=== PATIENT | female | born 1980 ===

== ENCOUNTER 2023-11-22 10:47 | Outpatient (AMB) | payer OTHER, SELFPAY ==
[2023-11-22 10:53] VITALS: BP 114/70; PULSE 58; TEMP 36.2; O2SAT 99; BMI 32.0
--- NOTE | 2023-11-22 10:53 | AM.OFFWIN_ITS ---
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 She states that on Thursday 11/16 she had a cortisone shot in her foot for her plantar fasciitis. Later that day, she started to feel palpitations. These were constant, and over the last 5 days, have decreased in frequency, however will still last a couple of hours at a time. She denies any associated symptoms such as chest pain, dizziness, shortness of breath. Denies any recent illness. Denies cardiac history or medical problems. [facility] Social History Patient Tobacco Use Status: Never used Tobacco Review of Systems Const All systems reviewed & are unremarkable except as noted in HPI and below Physical Exam Vital Signs: Last Vital Signs Temp 97.1 F 11/22/23 10:53 Pulse 58 11/22/23 10:53 BP 114/70 11/22/23 10:53 Pulse Ox 99 11/22/23 10:53 Oxygen Delivery Method Room Air 11/22/23 10:53 BMI result Body Mass Index 32.0 Const General: cooperative, healthy appearing, comfortable and no acute distress Nutritional Appearance: overweight Orientation/consciousness: patient oriented x3 HEENT Head: Yes normal to inspection Face and sinus: Yes normal facial exam Neck Neck: Yes no lymphadenopathy Chest Chest palpation & inspection: normal inspection of the chest Resp Effort & Inspection: normal respiratory effort Auscultation: clear to auscultation bilaterally Skin General skin exam: no rashes or lesions noted Neuro General: patient oriented x3 Cognition (Neuro): normal cognition Extrem General: Yes capillary refill normal and Yes no clubbing, cyanosis or edema Psych Appearance: grossly normal Mental Status: mental status grossly normal Speech and movement: Normal speech and movement present Assessment & Plan Assessment & Plan (1) Intermittent palpitations: Code(s): R00.2 - Palpitations Plan: EKG in the office shows sinus bradycardia, 56. Physical assessment is normal. She was not due to see Dr. Hope, PCP for several months, however we were able to accommodate an appointment for her tomorrow for a f/u to determine any fur ther workup for this. We discussed that if she develops any associated symptoms with these palpitations such as chest pain, dizziness, shortness of breath, she should go to the ED for evaluation. Otherwise she will f/u with PCP tomorrow. Patient verbalizes understanding and agrees to plan. Orders: Orders AMB EKG-In Office Today R00.2 - Palpitations Coding Level of Care Code Est Pt Level 4 (62116) Diagnoses Intermittent palpitations R00.2
== END 2023-11-22 12:14 | disposition home or self-care (01) ==
PROVIDERS: PCP Internal Medicine; Visit Provider Nurse Practitioner Family
DX: R00.2 Palpitations (principal)
CPT/HCPCS: 99214

== ENCOUNTER 2023-11-23 09:27 | Outpatient (AMB) | payer OTHER, SELFPAY ==
[2023-11-23 09:35] VITALS: BP 116/76; PULSE 68; O2SAT 96; BMI 31.7
--- NOTE | 2023-11-23 09:35 | A.OFFPC_ITS ---
Vital Signs 11/23/23 09:35 Height 4 ft 9 in Weight 146 lb 8 oz BMI 31.7 BP 116/76 Blood Pressure Location Lt brachial Position Sitting Pulse 68 Pulse Source Pulse Oximeter Pulse Oximetry (%) 96 Oxygen Delivery Method Room Air Intake Visit Reasons: [place] F/U 11/22/23 Intake Note: Pt is today for follow up from walking on 11/22/23. Pt states she still having heart palpitations. Pt also mentioned she had 2 steroid injections. Allergies No Known Allergies Allergy (Verified 11/23/23 10:18) Medication List - Last Reconciled 11/23/23 by HAIM Barber famotidine 20 mg PO BID Tobacco use date assessed: 11/23/23 Dental Screening Dental Screen Date: 11/23/23 Did you have a dental visit in the last 12 months?: Yes Did you have a dental problem in the last 6 months where you did not have access to dental care?: No Was dental information given to patient?: Patient has dentist HPI HPI Comments History of Present Illness Details Patient is a 43-year-old female in today for walk-in follow-up. Patient states that she got cortisone injections in bilateral feet for plantar fasciitis. Patient states since then she has been having intermittent chest palpitations. Patient was seen in our walk-in clinic 1 day prior had EKG which demonstrated sinus bradycardia. Patient reports 1 cup of coffee as caffeine consumption. Denies history of thyroid disorders. Denies cardiac history. Denies chest pain or shortness of breath. Denies syncope or presyncope. Denies general anxiety. Will obtain EKG in office today. Will draw labs including BMP, TSH, CBC. [facility] Medical History (Updated 11/23/23 @ 10:31 by HAIM Barber) GERD (gastroesophageal reflux disease) Family History (Updated 11/23/23 @ 10:20 by HAIM Barber) Mother Stroke Social History Housing: House Patient Tobacco Use Status: Never used Tobacco e-Cigarette/Vaping Use: Never Used service: No Current occupational status: employed Cognitive needs: No Hearing needs: No Vision needs: No Questionnaire PHQ-9 Over the last 2 weeks, how often have you been bothered by any of the following problems? 55110 - PHQ-9 Billing: Patient declined-do not bill Source: Developed by Drs. Richard Osorio, Rhonda King, Amilcar Carreon and colleagues, with an educational hero from [employer]. AUDIT C Alcohol Use Questionnaire (AUDIT-C) 1. How often do you have a drink containing alcohol?: Never 3. How often do you have six or more drinks on one occasion?: Never Total Score: 0 Score Reviewed/Action Taken: Yes MANOJ-7 AMB Questionnaire MANOJ-7 Assessment Billing MANOJ-7 Assessment Tool: pt declined-do not bill Review of Systems Const All systems reviewed & are unremarkable except as noted in HPI and below Denies chills, Denies fever(s), Denies headache(s) and Denies weakness Eyes Denies blurry vision ENT Denies dizziness and Denies headache(s) Card Denies chest pain, Denies chest pain at rest, Denies rapid heart rate, Denies lightheadedness, Denies dyspnea and Reports other (Admits palpitations) Resp Denies chest congestion, Denies cough and Denies dyspnea GI Denies diarrhea, Denies nausea and Denies vomiting Musc Denies numbness Neuro Denies dizziness, Denies headache(s), Denies numbness and Denies weakness Psych Denies anxiety Physical exam (Primary Care) Vital Signs: Last Vital Signs Pulse 68 11/23/23 09:35 BP 116/76 11/23/23 09:35 Pulse Ox 96 11/23/23 09:35 Oxygen Delivery Method Room Air 11/23/23 09:35 Care Plan Goal for BP management: Blood pressure in control. BMI result Body Mass Index 31.7 Tobacco/Smoking Status: Tobacco use Status Tobacco use date assessed 11/23/23 11/23/23 09:40 Patient Tobacco Use Status Never used Tobacco 11/23/23 09:40 e-Cigarette/Vaping Use Never Used 11/23/23 09:40 Const Other: Appearance: Alert.? Oriented X3.? No acute distress.? Head: Normocephalic, Eyes: Pupils equal, round and reactive to light.? Neck: Normal inspection.? Neck supple.?No carotid upstroke. CVS: Normal heart rate and rhythm.? Pulses normal.?+systolic murmurr. Respiratory: No respiratory distress.? Breath sounds normal.? Abdomen: Soft and nontender.? Skin: Skin warm and dry.? Normal skin color.? Normal skin turgor.? Extremities: No lower extremity edema.? Neuro: Oriented X 3.? No motor deficit.? No sensory deficit. CN 2-12 intact Assessment and Plan Assessment & Plan (1) Heart palpitations: Comment: Will order CBC, BMP, TSH, 3 day Holter monitor. Code(s): R00.2 - Palpitations (2) Abnormal EKG: Comment: Will order echocardiogram. Patient has been educated on signs of worsening symptoms when to return to the walk-in or when to present to the ED. Code(s): R94.31 - Abnormal electrocardiogram [ECG] [EKG] Plan: Take your medications as prescribed. If you were prescribed antibiotics today, it is important that you take your medication to their entirety, do not skip any doses, do not finish them early. Follow-up with your primary care provider Return to the emergency department with new or worsening symptoms. Such as fevers, chills, chest pain, shortness of breath, nausea, vomiting, dizziness, headache, vision changes, lethargy In case of emergency call 911 Plan Will get back to patient with lab and testing results. Orders: Orders Complete Blood Count Auto Diff Today R00.2 - Palpitations TSH reflex Free T4 Today R00.2 - Palpitations CA echo transthoracic complete Today R00.2 - Palpitations, R94.31 - Abnormal electrocardiogram [ECG] [EKG] AMB EKG-In Office Today Z13.6 - Encounter for screening for cardiovascular disorders Basic Metabolic Panel Today ECG 3 day holter monitor Today R00.2 - Palpitations Coding Level of Care Code Est Pt Level 3 (76451) Diagnoses Heart palpitations R00.2 Abnormal EKG R94.31 Time Spent (min) 28
== END 2023-11-23 14:01 | disposition home or self-care (01) ==
PROVIDERS: PCP Internal Medicine; Visit Provider Nurse Practitioner Primary Care
DX: R00.2 Palpitations (principal); R94.31 Abnormal electrocardiogram [ECG] [EKG]
CPT/HCPCS: 99213

== ENCOUNTER 2023-11-23 10:18 | Outpatient (REF) | payer OTHER, SELFPAY ==
[2023-11-23 13:09] LABS: MANUAL DIFF FLAG NO
[2023-11-23 13:20] LABS: Basophils Percent Auto 0.4 % (0-2); Eosinophils Percent Auto 0.4 % (0-4); Imm Gran Abs Auto 0.03 X10*3/uL (0.00-0.03); Imm Gran Pct Auto 0.3 % (0.0-0.4); Lymphocytes Absolute Auto 2.3 X10*3/uL (1.2-4.9); Lymphocytes Percent Auto 25.4 % (20-40); Mean Corpuscular HGB Conc 33.3 g/dl (31.0-35.0); Mean Platelet Volume 10.8 fL (9.4-12.3); Monocytes Absolute Auto 0.5 X10*3/uL (0.1-1.2); Monocytes Percent Auto 5.9 % (2-11); Neutrophils Absolute Auto 6.1 x10*3/uL (2.0-8.3); Neutrophils Percent Auto 67.6 % (45-73); Platelet Count 324 X10*3/uL (160-400); Red Cell Distribution Width 12.3 % (11.0-16.0)
[2023-11-23 14:00] LABS: Anion Gap 16 (12-20); Blood Urea Nitrogen 12 mg/dL (9-16); Calcium 10.3 mg/dL (8.4-10.2); Carbon Dioxide 23 mmol/L (22-29); Chloride 102 mmol/L (96-108); Estimated Glomerular Filt Rate > 60; Glucose Random 164 mg/dL (60-115); Potassium 4.1 mmol/L (3.3-5.1); Sodium 137 mmol/L (135-145)
[2023-11-23 14:18] LABS: TSH reflex Free T4 0.81 uIU/mL (0.32-4.0)
== END 2023-11-23 10:19 | disposition home or self-care (01) ==
LOC: HO.HMGCLDS 10:18
PROVIDERS: PCP Internal Medicine; Visit Provider Nurse Practitioner Primary Care
DX: R00.2 Palpitations (principal)
CPT/HCPCS: 36415; 80048; 84443; 85025

== ENCOUNTER 2023-12-08 08:00 | Outpatient (REF) | payer OTHER, SELFPAY ==
[2023-12-08 10:55] LABS: Estimated Average Glucose 123 mg/dL; Hemoglobin A1c % 5.9 % (<6.0)
== END 2023-12-08 08:01 | disposition home or self-care (01) ==
LOC: HO.HMGCLDS 08:00
PROVIDERS: PCP Internal Medicine; Visit Provider Nurse Practitioner Primary Care
DX: R73.09 Other abnormal glucose (principal)
CPT/HCPCS: 36415; 83036

== ENCOUNTER → 2024-01-04 09:24 | Outpatient (REF) | payer OTHER, SELFPAY ==
--- NOTE | 2024-01-04 09:28 | HM_ITS ---
Conclusion: 1. Patient was monitored for total period of 3 days 2. Baseline was normal sinus rhythm with average heart of 71 beats per minute 3. No significant pauses noted 4. Frequent PVCs noted with total burden of 1.8% 5. No patient reported events MTDD
--- NOTE | 2024-01-04 09:28 | CA_ITS ---
Transthoracic Echocardiogram Patient (Last, First, Middle): Collin Patito, Gender: Female Date of : 1980 Age: 43 Procedure Date: 01/04/2024 Procedure Type: Transthoracic Echocardiogram Location: OP Height: 144.78 cm Weight: 66.23 kg BSA: 1.57 m2 Heart Rate: 61 bpm BP: 120 / 65 mmHg High Heel Builder: PACO Referring MD: Amilcar WHITMORE Symptoms: R00.2 - Palpitations Study Quality: Fair ECG Rhythm: Arrhythmia Conclusions: - The left ventricular systolic function is normal. The calculated ejection fraction is 59% by biplane method. - No obvious valvular pathology seen on this study. Findings Left Ventricle Normal left ventricular cavity size. There is normal left ventricular wall thickness. The left ventricular systolic function is normal. The calculated ejection fraction is 59% by biplane method. There is no evidence of regional wall motion abnormalities. Diastolic function is normal for age. LV peak GLS -18.7%. Right Ventricle Normal right ventricular cavity size and systolic function. Atria Both atria are normal in size. Aortic Valve There is a normal trileaflet aortic valve. There is no aortic valve stenosis. There is no aortic valve regurgitation. Mitral Valve The mitral valve appears normal. There is no mitral valve regurgitation. There is no mitral valve stenosis. Pulmonic Valve The pulmonic valve is likely normal. Tricuspid Valve Normal tricuspid valve structure. There is trace tricuspid valve regurgitation. There is no evidence of pulmonary hypertension. Great Vessels The asc aorta is normal in size. Venous The inferior vena cava is normal in size and collapses greater than 50% with inspiration. Pericardium/Pleural There is no evidence of pericardial effusion. Prior Study Comparison No prior study available for comparison. Recommendations, Care & Conclusions No obvious valvular pathology seen on this study. Measurements 2D Linear Measurements IVSd: 0.66 0.6-0.9/0.6-1.0 cm LVIDd: 4.83 3.9-5.3/4.2-5.9 cm LVIDd Index: 3.08 2.4-3.2/2.2-3.1 cm/m2 LVIDs: 2.87 2.0-3.6 cm LVPWd: 0.76 0.7-1.1 cm LA Diam: 3.50 2.7-3.8/3.0-4.0 cm LAIDs Index: 2.23 1.5-2.3 cm/m2 LV Mass: 137.57 67-162/88-224 g LV Mass Index: 87.63 43-95/49-115 g/m2 LVOT Diam: 1.90 3.0+(-)1.3 cm 2D Systolic Function EF 4C: 55.30 >55% EF 2C: 60.80 >55% EF BiP: 59.30 >55% Mitral Valve MV Pk E: 0.73 MV PK A: 0.53 MV Decel Time: 125.00 E/A: 1.40 E'Lateral: 11.00 E'Medial: 7.94 E/E' Med: 9.20 E/E' Lat: 6.70 PHT: 37.00 MVA PHT: 5.95 Decel Sibley: 5.85 Aortic Valve AoV Pk Rohan: 1.49 AoV Mn Rohan: 1.07 AoV VTI: 0.32 AoV Pk Grad: 9.00 Aov Mn Grad: 5.00 ANIYA Cont.VTI: 1.98 LVOT LVOT Pk Rohan: 1.06 LVOT Mn Rohan: 0.77 LVOT VTI: 0.23 LVOT Pk Grad: 4.00 LVOT Mn Grad: 3.00 LVOT Diam: 1.90 LVOT Area: 2.84 Diastolic Function MV Pk E: 0.73 MV Pk A: 0.53 E/A: 1.40 E'Medial: 7.94 E/E' Med: 9.20 E' Laterial: 11.00 E/E' Lat: 6.70 Right Ventricle TAPSE (mm): 23.50 TVS' Rohan: 11.60 Tricuspid Valve TR Pk Rohan: 1.52 TR Pk Grad: 9.00 RA Press: 3.00 RVSP: 12.00 Great Vessels Aorta Sinus of Valsalva: 2.80 2.0-3.5 cm Ao Asc: 2.90 2.1-3.4 cm Pulmonary Valve PV Pk Rohan: 1.06 Peak PV Grad: 4.00 Updated in Other Vendor System with Status of Final Mike Gambino MD electronically signed on 01/05/2024 4:15:13 PM with status of Final
== END ==
LOC: HO.CARD 09:24
PROVIDERS: PCP Internal Medicine; Visit Provider Nurse Practitioner Primary Care
DX: R00.2 Palpitations (principal); R94.31 Abnormal electrocardiogram [ECG] [EKG]
CPT/HCPCS: 93242; 93306; 93356

== ENCOUNTER → 2024-01-04 09:28 | Outpatient (BNV) | payer OTHER, SELFPAY | PROVIDERS: PCP Internal Medicine; Visit Provider Internal Medicine | DX: I49.3 Ventricular premature depolarization (principal) | CPT/HCPCS: 93244; 93306; 93356 ==

== ENCOUNTER 2024-04-23 08:46 | Outpatient (AMB) | payer OTHER, SELFPAY ==
--- NOTE | 2024-04-23 08:47 | MHC.OFFVIS ---
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 She is a pleasant 43-year-old female with no significant past medical history with family history of CAD in her mom who at 65 with [place] but had strokes prior to that. Patient has no active symptoms. She says she got a cortisone shot probably with epinephrine for plantar fascitis in his left foot and since then she started having symptoms of palpitation. She says although the injections done sometime back she continues to have symptoms of palpitation which are very bothersome to her. She underwent a Holter monitor which showed frequent isolated PVCs at a burden of about 1.8%. Echocardiogram done showed normal structure of the heart. She said she continues to have symptoms of palpitation although she describes as palpitation and rapid heart rate rise and skip strong heartbeats. No associated symptoms of lightheadedness, syncope. No shortness of breath, heart failure symptoms. She denies any exertional chest pain. [facility] Medical History GERD (gastroesophageal reflux disease) Family History Mother Stroke Social History Housing: House Patient Tobacco Use Status: Never used Tobacco e-Cigarette/Vaping Use: Never Used service: No Current occupational status: employed Cognitive needs: No Hearing needs: No Vision needs: No Review of Systems Const Denies chills, Denies daytime sleepiness, Denies fatigue, Denies fever(s), Denies frequent falls, Denies poor appetite, Denies snoring, Denies stops breathing during sleep, Denies weakness, Denies weight gain and Denies weight loss Eyes Denies loss of vision ENT Denies dizziness and Denies hearing loss Card Denies chest pain, Denies claudication, Denies leg edema, Denies lightheadedness, Reports palpitations, Denies dyspnea, Denies dyspnea on exertion and Denies orthopnea Resp Denies cough, Denies excessive phlegm production, Denies dyspnea, Denies dyspnea on exertion, Denies snoring and Denies wheezing GI Denies abdominal pain, Denies hematochezia, Denies change in bowel habits, Denies nausea and Denies vomiting Denies urinary frequency and Denies dysuria Musc Denies arthralgias, Denies muscle weakness, Denies numbness and Denies other (frequent falls) Skin/Breast Denies nail changes and Denies rash Neuro Denies Abnormal speech present, Denies dizziness, Denies frequent falls, Denies loss of vision, Denies memory loss, Denies numbness and Denies weakness Psych Denies depression and Denies memory loss Endo Denies fatigue and Reports palpitations Will/Lymph Reports easy bruising and Reports other (anemia) Aller/Immun Denies wheezing Physical Exam Vital Signs: Last Vital Signs Pulse 66 04/23/24 08:48 BP 120/80 04/23/24 08:48 BMI result Body Mass Index 31.0 Const General: cooperative, comfortable, no acute distress, alert, awake, Physically active and well groomed Nutritional Appearance: overweight Orientation/consciousness: patient oriented x3 Limitations: no limitations HEENT Head: Yes normocephalic and Yes atraumatic Neck Neck: Yes trachea midline, Yes supple and Yes no JVD Resp Effort & Inspection: normal respiratory effort Auscultation: clear to auscultation bilaterally Cardio Jugular venous distension: no JVD Palpation: normal PMI Rate: regular rate Rhythm: regular rhythm Heart sounds: S1 normal heart sound present, S2 normal heart sound present, no click, no gallops, no murmurs and no rubs GI Auscultation: normal bowel sounds Skin General skin exam: no rashes or lesions noted Neuro General: patient oriented x3 and no focal motor deficits Speech: No Abnormal speech present Extrem General: Yes no clubbing, cyanosis or edema Psych Appearance: grossly normal Office Procedures EKG Details: EKG shows normal sinus rhythm with normal EKG [id number], Complete Assessment & Plan Assessment & Plan (1) PVC (premature ventricular contraction): Code(s): I49.3 - Ventricular premature depolarization Category: Medical Plan: Patient with frequent PVCs, isolated with no sustained arrhythmias with normal echocardiogram with normal LV function. Most likely isolated PVCs triggered by recent cortisol all short. She continues to have significant symptoms. No other symptoms although need to rule out myocardial ischemia although less likely, only risk factor of family history. Will suggest a treadmill stress test which also help with evaluation hemodynamic response, exercise capacity as well as exercise-induced arrhythmias. Given that she has significantly symptomatic will start on Toprol 25 mg daily to help her with her symptoms. Mechanism of action of metoprolol was discussed. Pathophysiology of PVCs were discussed. Will gradually uptitrate medications till she has symptom relief. Once his symptoms have subsided we can then gradually taper and metoprolol therapy. This was discussed with her. She is agreeable. Advised to participate in stress mitigation strategies. Avoidance of stimulants was discussed. Will follow up in the clinic in 6 months time, sooner p.r.n.. Thank you for allowing me to partake in his care Orders: Orders CA stress test Today I49.3 - Ventricular premature depolarization Medications: New metoprolol succinate ER (Toprol XL) 25 mg PO DAILY 30 tabs 5RF I49.3 - Ventricular premature depolarization Coding Level of Care Code New Pt Level 4 (51236) Diagnoses PVC (premature ventricular contraction) I49.3 CPT Codes EKG - CPT: 82761-[id number], Complete ([id number])
[2024-04-23 08:48] VITALS: BP 120/80; PULSE 66; BMI 31.0
== END 2024-04-23 09:18 | disposition home or self-care (01) ==
PROVIDERS: PCP Internal Medicine; Visit Provider Internal Medicine Cardiovascular Disease
DX: I49.3 Ventricular premature depolarization (principal)
CPT/HCPCS: 93010; 99213

== ENCOUNTER → 2024-04-23 08:46 | Outpatient (BNVA) | payer OTHER, SELFPAY | PROVIDERS: PCP Internal Medicine; Visit Provider Internal Medicine Cardiovascular Disease | DX: I49.3 Ventricular premature depolarization (principal); R00.2 Palpitations | CPT/HCPCS: 93005; 99212 ==

== ENCOUNTER → 2024-05-31 08:42 | Outpatient (REF) | payer OTHER, SELFPAY ==
--- NOTE | 2024-05-31 08:44 | CA_ITS ---
Acquisition Time: 2024-05-31 09:06:38 Total Exercise Time: 00:09:23 Test Indications: Abnormal ECG PVC'S Medications: METOPROLOL Protocol: WENDY Max HR: 153 BPM 86% of Pred: 177 BPM Max BP: 168/060 mmHG Max Work Load: 10.7 METS Exercise stress test with exercise 9 min 23 sec of Wendy protocol, achieving 86% MPHR, without anginal symptoms, with one PVC noted in recovery, with normotensive response to exercise, without EKG changes meeting criteria for ischemia. Test reviewed with Dr Evans Referred By: Bright Evans Overread By: MELVI NEGRETE
== END ==
LOC: HO.CARD 08:42
PROVIDERS: Visit Provider Internal Medicine Cardiovascular Disease
DX: I49.3 Ventricular premature depolarization (principal)
CPT/HCPCS: 93017

== ENCOUNTER → 2024-05-31 08:44 | Outpatient (BNV) | payer OTHER, SELFPAY | PROVIDERS: Visit Provider Nurse Practitioner Family | DX: I49.3 Ventricular premature depolarization (principal) | CPT/HCPCS: 93016; 93018 ==

== ENCOUNTER 2024-07-19 13:04 | Outpatient (REF) | payer OTHER, SELFPAY ==
[2024-07-20 14:17] LABS: Bacterial Vaginosis PCR NEGATIVE (Negative); Candida Group PCR NOT DETECTED (Not Detect); Candida glab krusei PCR NOT DETECTED (Not Detect); Trichomonas vaginalis PCR NOT DETECTED (Not Detect)
[2024-07-20 14:48] LABS: CT PCR NOT DETECTED (Not Detect.); NG PCR NOT DETECTED (Not Detect.)
== END 2024-07-19 13:05 | disposition home or self-care (01) ==
LOC: HO.LNP 13:04
PROVIDERS: Visit Provider Physician Assistant
DX: N89.8 Other specified noninflammatory disorders of vagina (principal)
CPT/HCPCS: 0352U; 81003; 87491; 87591; 99212

== ENCOUNTER 2024-07-19 13:04 | Outpatient (AMB) | payer OTHER, SELFPAY ==
--- NOTE | 2024-07-19 13:27 | AM.OFFWIN_ITS ---
Intake Vital Signs 07/19/24 13:37 Weight 65.317 kg BP 122/76 Blood Pressure Location Rt brachial Position Sitting Pulse 80 Pulse Source Pulse Oximeter Pulse Oximetry (%) 98 Oxygen Delivery Method Room Air Intake Visit Reasons: EP-?UTI Intake Note: Patient here for frequent urination, burning and slight itching that has been present for 2 weeks. Pt states she was seen by OBGYN and was put on fluconazole for 3 days which she finished and no change so then she was prescribed Bactrim which did not help either. Patient Tobacco Use Status: Never used Tobacco Allergies No Known Allergies Allergy (Verified 07/19/24 13:38) Do you need a note to return to daycare/school/sports/work: No HPI HPI Comments History of Present Illness Details 1415 43 yo f presents w. concerns that her va anant is itchy and swollen X3 weeks. Recently treated w/ Bactrim and fluconazole finished it a few weeks ago. Using topical steroid creams. Reports it cordova to urinate. No vaginal discharge. Seen by obgyn for this. No abd pain, fevers, chills, cp, sob, n/v/d. PE benign Sensative exam- Annabel MA at bedside no lesions, lumps, masses or DC Plan- swabs. Will treat with atbx short round, pyridium. Advised to follow up with obgyn No concerns for STDs doesn't want prophylactic treatment PFSH Medical History Vaginal pruritus GERD (gastroesophageal reflux disease) Family History Mother Stroke Social History Housing: House Patient Tobacco Use Status: Never used Tobacco e-Cigarette/Vaping Use: Never Used service: No Current occupational status: employed Cognitive needs: No Hearing needs: No Vision needs: No Review of Systems Const All systems reviewed & are unremarkable except as noted in HPI and below Physical Exam Vital Signs: Last Vital Signs Pulse 80 07/19/24 13:37 BP 122/76 07/19/24 13:37 Pulse Ox 98 07/19/24 13:37 Oxygen Delivery Method Room Air 07/19/24 13:37 vss Appearance: Alert.? Oriented X3.? No acute distress.? Head: Normocephalic, atraumatic, no step-offs or deformities Eyes: Pupils equal, round and reactive to light.? CVS: Normal heart rate and rhythm.? Pulses normal.? Respiratory: No respiratory distress.? Breath sounds normal.? Abdomen: Soft and nontender.? Skin: Skin warm and dry.? Normal skin color.? Normal skin turgor.? Extremities: No lower extremity edema.? No calf ttp. 5/5 strength to bilateral upper and lower extremities Back: No midline tenderness, no C-spine tenderness, full range of motion, no CVA tenderness bilaterally Neuro: Oriented X 3.? No motor deficit.? No sensory deficit. CN 2-12 intact Sensative: benign annabel laundry operator at bedside. Results AMB Urinalysis, Automated UA Leukoctes 0 Martin/uL Last Edit by JEAN CARLOS Tom on 07/19/24 13:59 UA Nitrite Negative Last Edit by Neel Martin CCM on 07/19/24 13:59 UA Urobilinogen 0.2 mg/dL Last Edit by Neel Martin [facility] on 07/19/24 13:59 UA Protein 0 mg/dL Last Edit by Neel Martin [facility] on 07/19/24 13:59 UA pH 6.0 Last Edit by Neel Martin [facility] on 07/19/24 13:59 UA Blood 10 Naif/uL Last Edit by Neel Martin CCM on 07/19/24 13:59 UA Specific [place] 1.025 Last Edit by Neel Martin CCM on 07/19/24 13:59 UA Ketone Negative Last Edit by Neel Martin [facility] on 07/19/24 13:59 UA Bilirubin 0 mg/dL Last Edit by Neel Martin [facility] on 07/19/24 13:59 UA Glucose 0 mg/dL Last Edit by Neel Martin [facility] on 07/19/24 13:59 Results Reviewed Results Reviewed: Laboratory Last Values Urine pH (Auto) 6.0 07/19/24 13:58 Specific [place] (Auto) 1.025 07/19/24 13:58 Urine Protein (Auto) 0 mg/dL 07/19/24 13:58 Glucose (UA)(Auto) 0 mg/dL 07/19/24 13:58 Urine Ketones (Auto) Negative 07/19/24 13:58 Urine Blood (Auto) 10 Naif/uL 07/19/24 13:58 Urine Nitrite (Auto) Negative 07/19/24 13:58 Urine Bilirubin (Auto) 0 mg/dL 07/19/24 13:58 Urine Urobilinogen (Auto) 0.2 mg/dL 07/19/24 13:58 Leukocyte Esterase (Auto) 0 Martin/uL 07/19/24 13:58 Assessment & Plan Assessment & Plan (1) Vaginal pruritus: Code(s): N89.8 - Other specified noninflammatory disorders of vagina Plan Take your medications as prescribed. If you were prescribed antibiotics today, it is important that you take your medication to their entirety, do not skip any doses, do not finish them early. Today you tested positive for COVID-19. Take Ibuprofen or Tylenol as needed for fevers or body aches. Quarantine for 5 days and ensure you wear a mask. After 5 days you should wear a mask for 5 days after that. Practice social distancing and good hand hygiene. Drink plenty of fluids. Follow-up with your primary care provider this week. Return to the emergency department with new or worsening symptoms. In case of emergency call 911 You can purchase a pulse oximeter from your local pharmacy or grocery store, and monitor your oxygen saturation if it goes below 94% you should return to the emergency department for further evaluation. Orders: Orders AMB Urinalysis Automated Today Z13.9 - Encounter for screening, unspecified CT NG by PCR Today N89.8 - Other specified noninflammatory disorders of vagina Bacterial Vaginosis Panel Today N89.8 - Other specified noninflammatory disorders of vagina Medications: New nitrofurantoin monohyd/m-cryst 100 mg (Macrobid) must administer with a meal/food 100 mg PO BID 10 caps 0RF 5 days phenazopyridine (Pyridium) 200 mg PO TID 6 tabs 0RF 6 doses Coding Level of Care Code Est Pt Level 3 (00445) Diagnoses Vaginal pruritus N89.8
[2024-07-19 13:37] VITALS: BP 122/76; PULSE 80; O2SAT 98
== END 2024-07-19 14:38 | disposition home or self-care (01) ==
PROVIDERS: Visit Provider Physician Assistant
DX: N89.8 Other specified noninflammatory disorders of vagina (principal); R35.0 Frequency of micturition

== ENCOUNTER 2024-07-20 09:28 | Outpatient (REF) | payer OTHER, SELFPAY | END 2024-07-20 09:29 | disposition home or self-care (01) | LOC: HO.LAB 09:28 | PROVIDERS: Visit Provider Physician Assistant | DX: Z13.89 Encounter for screening for other disorder (principal) ==

== ENCOUNTER 2024-10-22 09:31 | Outpatient (AMB) | payer OTHER, SELFPAY ==
--- NOTE | 2024-10-22 09:41 | A.OFFVIS_ITS ---
Vital Signs 10/22/24 09:42 Height 4 ft 9 in Weight 149 lb 14.629 oz BMI 32.4 BP 110/68 Blood Pressure Location Lt brachial Position Sitting Pulse 68 Intake Visit Reasons: 6 mth f/up Intake Note: 6 month follow-up c/o still has palpitations for a few minutes sometimes Equipment Mechanic Required: No Allergies No Known Allergies Allergy (Verified 07/19/24 13:38) Medication List - Last Reconciled 10/22/24 by Bright Evans MD metoprolol succinate ER (Toprol XL) 25 mg PO DAILY HPI Comments Details: Paitto comes for follow-up. He feels a lot better on metoprolol but the symptoms are still present as sometimes she still has strong palpitations. She was avoiding caffeine right now. No significant alcohol use. No other cardiac symptoms. Tolerating metoprolol 25 mg well. [facility] Medical History Vaginal pruritus GERD (gastroesophageal reflux disease) Family History Mother Stroke Social History Housing: House Patient Tobacco Use Status: Never used Tobacco e-Cigarette/Vaping Use: Never Used service: No Current occupational status: employed Cognitive needs: No Hearing needs: No Vision needs: No Review of Systems Const Denies chills, Denies fatigue, Denies fever(s), Denies frequent falls, Denies weakness, Denies weight gain and Denies weight loss ENT Denies dizziness Card Denies chest pain, Denies leg edema, Denies lightheadedness, Denies palp itations, Denies dyspnea, Denies dyspnea on exertion, Denies orthopnea and Denies other (loss of consciousness) Resp Denies cough, Denies dyspnea and Denies dyspnea on exertion GI Denies hematochezia and Denies change in stool character Musc Denies abnormal gait, Denies muscle weakness, Denies numbness, Denies radiating pain into limb and Denies tingling Neuro Denies Abnormal speech present, Denies abnormal gait, Denies dizziness, Denies frequent falls, Denies numbness, Denies tingling and Denies weakness Endo Denies fatigue and Denies palpitations Physical Exam Vital Signs: Last Vital Signs Pulse 68 10/22/24 09:42 BP 110/68 10/22/24 09:42 BMI result Body Mass Index 32.4 Const General: cooperative, comfortable, no acute distress, alert, awake, Physically active and well groomed Nutritional Appearance: overweight Orientation/consciousness: patient oriented x3 Limitations: no limitations HEENT Head: Yes normocephalic and Yes atraumatic Neck Neck: Yes trachea midline, Yes supple and Yes no JVD Resp Effort & Inspection: normal respiratory effort Auscultation: clear to auscultation bilaterally Cardio Jugular venous distension: no JVD Palpation: normal PMI Rate: regular rate Rhythm: regular rhythm Heart sounds: S1 normal heart sound present, S2 normal heart sound present, no click, no gallops, no murmurs and no rubs GI Auscultation: normal bowel sounds Skin General skin exam: no rashes or lesions noted Neuro General: patient oriented x3 and no focal motor deficits Speech: No Abnormal speech present Extrem General: Yes no clubbing, cyanosis or edema Psych Appearance: grossly normal Assessment & Plan Assessment & Plan (1) PVC (premature ventricular contraction): Code(s): I49.3 - Ventricular premature depolarization Category: Medical Plan: Highly symptomatic PVCs which have improved but not completely dissipate on current metoprolol therapy. However she is doing a lot better than before. Will further increase metoprolol to 50 mg daily to improve her symptoms. Benign nature of isolated PVCs were discussed with her. She understands. Follow-up Holter monitor month's time to assess for frequency of PVCs. Avoidance of stimulants was discussed again Will follow up in the clinic in 1 year's time, sooner p.r.n.. Orders: Orders ECG 3 day holter monitor 1 Month I49.3 - Ventricular premature depolarization Medications: New metoprolol succinate ER (Toprol XL) 50 mg PO DAILY 90 tabs 3RF Discontinued metoprolol succinate ER (Toprol XL) Discontinued Reason: Doctor's Order 25 mg PO DAILY 30 tabs 5RF I49.3 - Ventricular premature depolarization Coding Level of Care Code Est Pt Level 3 (25352) Complex EM visit Add On G2211 Diagnoses PVC (premature ventricular contraction) I49.3
[2024-10-22 09:42] VITALS: BP 110/68; PULSE 68; BMI 32.4
--- OUTSIDE RECORDS SUMMARY | 2024-10-22 10:46 | XMS_ITS | Encounter Summary ---
Author Organization [facility] Address [address] [place] [address] Care Team Providers Care Tow Truck Driver Name Role Phone Jazmín Lutz MD Primary Care Provider [phone] Encounter Details Date Type Department Care Team (Late st Contact Info) Description 10/08/2024 Telephone Orthopedic Surgery [facility] [address] [place] [phone] Liana Escobar MA Social History Tobacco Use Types Packs/Day Years Used Date Smoking Tobacco: Never Assessed Comments Unknown Sex and Gender Information Value Date Recorded Sex Assigned at Not on file Legal Sex Female 11:02 AM EDT Gender Identity Not on file Sexual Orientation Not on file documented as of this encounter Ordered Prescriptions Prescription Sig Dispense Quantity Refills Last Filled Start Date End Date naproxen (NAPROSYN) 500 mg tabletIndications: Plantar fascial fibromatosis,Sprai n of other ligament of left ankle, initial encounter Take 1 tablet (500 mg total) by mouth 2 (two) times a day. 60 each 10/08/2024 11/07/2024 documented in this encounter Plan of Treatment Not on file documented as of this encounter Visit Diagnoses Diagnosis Plantar fascial fibromatosis- Primary Sprain of other ligament of left ankle, initial encounter documented in this encounter Care Teams Tow Truck Driver Relationship Specialty Start Date End Date Jazmín Lutz MD [address] [place] [address] PCP - General 11/10/23 documented as of this encounter
--- OUTSIDE RECORDS SUMMARY | 2024-10-22 10:46 | XMS_ITS | Encounter Summary ---
Author Organization [facility] Address [address] [place] [address] Care Team Providers Care Business Performance Advisor Name Role Phone Jazmín Lutz MD Primary Care Provider Encounter Details Date Type Department Care Team (Late st Contact Info) Description 07/29/2024 Lab Requisition [facility] - Main Lab [address] [place] [phone] Tori Lopez MD [address] [phone] Acute vaginitis Social History Tobacco Use Types Packs/Day Years Used Date Smoking Tobacco: Never Assessed Comments Unknown Sex and Gender Information Value Date Recorded Sex Assigned at Not on file Legal Sex Female 11:02 AM EDT Gender Identity Not on file Sexual Orientation Not on file documented as of this encounter Plan of Treatment Not on file documented as of this encounter Procedures Procedure Name Priority Date/Time Associated Diagnosis Comments VAGINITIS PATHOGENS BY PCR Routine 07/29/2024 12:00 AM EST Acute vaginitis documented in this encounter Results * Vaginitis pathogens molecular study (07/29/2024 12:00 AM EST) Trichomonas vaginalis Negative Negative 07/30/2024 11:20 AM [facility] Gardnerella vaginalis Negative Negative 07/30/2024 11:20 AM [facility] Janiya Species Negative Negative 11:20 AM [facility] Swab Vaginal structure / Unknown 07/29/2024 07/29/2024 12:09 PM EST us Tori Lopez MD LAB MICROBIOLOGY - GENER AL ORDERABLES Final Result [facility] [address] [place] [address], documented in this encounter Visit Diagnoses Diagnosis Acute vaginitis Unspecified vaginitis and vulvovaginitis documented in this encounter Care Teams Business Performance Advisor Relationship Specialty Start Date End Date Jazmín Lutz MD [address] [place] [phone] PCP - General 11/10/23 documented as of this encounter
--- OUTSIDE RECORDS SUMMARY | 2024-10-22 10:46 | XMS_ITS | Clinical Summary ---
Author Organization [address] [facility] Address [address] [place] [address] Phone Care Team Providers Care Elevator Service Technician Name Role Phone Jazmín Lutz MD Primary Care Provider Allergies No known active allergies Medications naproxen (NAPROSYN) 500 mg tabletIndication s:Plantar fascial fibromatosis,Spr ain of other ligament of left ankle, initial encounter Take 1 tablet (500 mg total) by mouth 2 (two) times a day. 60 each 10/08/2024 Active Encounters Date Type Department Care Team Description 10/08/2024 Telephone Orthopedic Surgery [facility] [address] [phone] Liana Escobar MA 08/08/2024 6:23 PM EST - 08/08/2024 11:59 PM EST Hospital Encounter [facility] MRI [address] [place] [address] Plantar fascial fibromatosis Discharge Disposition: Home or Self Care 07/31/2024 8:45 AM EST Office Visit Orthopedic Surgery [facility] [address] [phone] Carlos Gr DPM Plantar fascial fibromatosis (Primary Dx); Equinus contracture of ankle 07/29/2024 Lab Requisition [facility] - Main Lab [address] [facility] [address] [place] [phone] Tori Lopez MD Acute vaginitis from Last 3 Months Immunizations Name Administration Dates Next Due Moderna SARS-CoV-2 COVID-19, mRNA, LNP-S, preservative free 07/08/2022 Social History Tobacco Use Types Packs/Day Years Used Date Smoking Tobacco: Never Assessed Comments Unknown Sex and Gender Information Value Date Recorded Sex Assigned at Not on file Legal Sex Female 11:02 AM EDT Gender Identity Not on file Sexual Orientation Not on file Last Filed Vital Signs Vital Sign Reading Time Taken Comments Blood Pressure - - Pulse - - Temperature - - Respiratory Rate - - Oxygen Saturation - - Inhaled Oxygen Concentration - - Weight 61.7 kg (136 lb) 07/31/2024 8:40 AM EST Height 144.8 cm (4' 9.01 ) 07/31/2024 8:40 AM ES T Body Mass Index 29.42 07/31/2024 8:40 AM EST Plan of Treatment Health Maintenance Due Date Last Done Comments Breast Cancer Screening 1980 Hepatitis B Vaccines (1 of 3 - 19+ 3-dose series) 10/25/1999 Cervical Cancer Screening: P ap Smear 2001 Depression Screening 02/16/2024 HIV Screening 02/16/2024 Hepatitis C Screening 02/16/2024 Social Influencers of Health Screening 02/16/2024 COVID-19 Vaccine (4 - 2023-2 5 season) 2024 07/08/2022, 12/25/2021, 12/04/2020 Influenza Vaccine (#1) 2024 3, 05/27/2022, 05/07/2021 DTaP,Tdap,and Td Vaccines (2 - Td or Tdap) 09/13/2029 09/13/2019 HIB Vaccines Aged Out No longer eligi ble based on patient's age to complete this topic HPV Vaccines Aged Out No longer eligi ble based on patient's age to complete this topic Hepatitis A Vaccines Aged Out No long er eligible based on patient's age to complete this topic IPV Vaccines Aged Out No longer eligi ble based on patient's age to complete this topic MMR Vaccines Aged Out No longer eligi ble based on patient's age to complete this topic Meningococcal ACWY Vaccine Aged Out N o longer eligible based on patient's age to complete this topic Meningococcal B Vacine Aged Out No lo nger eligible based on patient's age to complete this topic Pneumococcal Vaccine: Pediatrics (0 to 5 Years) and At-Risk Patients (6 to 64 Years) Aged Out No longer eligible b ased on patient's age to complete this topic RSV Immunization Patients Under 20 months Aged Out No longer eligible b ased on patient's age to complete this topic Varicella Vaccines Aged Out No longer eligible based on patient's age to complete this topic Procedures Procedure Name Priority Date/Time Associated Diagnosis Comments MR FOOT WO CONTRAST RIGHT Routine 08/08/2024 7:39 PM EST Plantar fascial fibromatosis VAGINITIS PATHOGENS BY PCR Routine 07/29/2024 12:00 AM EST Acute vaginitis from Last 3 Months Results * MR Foot wo Contrast Right (08/08/2024 7:39 PM EST) Anatomical Region Laterality Modality Lower Extremities, Foot Right Magnetic Resonance 08/12/2024 8:13 AM EST Impressions 08/12/2024 8:32 AM EST Focal thickening and heterogeneous signal involving the medial cord of the plantar fascia either representing plantar fasciitis and/or low-grade partial thickness tearing with underlying heel pad edema. -------- FINAL REPORT -------- Dictated By: Priscilla Carlton Dictated Date: 08/12/2024 08:13 ET Assigned Physician: Priscilla Carlton Reviewed and Electronically Signed By: Priscilla Carlton Signed Date: 08/12/2024 08:32 ET Workstation ID: [id number] Transcribed By: Self Edit Transcribed Date: 08/12/2024 08:13 ET Narrative 08/12/2024 8:32 AM EST INDICATION: ?? Foot pain, chronic, plantar fasciitis suspected COMPARISON: ??None TECHNIQUE: ??Multiplanar, multisequence MRI was performed of the right foot without intravenous contrast. FINDINGS: ?? Bone: ??No acute fracture or dislocation. ??No osteochondral lesion. ??Posterior plantar calcaneal spur. ??Small Achilles tendon enthesophyte. Soft Tissues: ??Focal thickening of the plantar fascia with superimposed heterogeneous signal involving the medial cord in keeping with mild heel pad subcutaneous soft tissue swelling. Nonspecific susceptibility artifact is noted along the skin at the level of the heel pad. Physiologic right ankle joint fluid is noted. ??The sinus Tarsi is unremarkable. ??Focal fluid signal along the dorsal anterior tibiotalar articulation which may represent a small ganglion measuring approximately 8 x 7 mm. Procedure Note Priscilla Carlton MD - 08/12/2024 INDICATION: Foot pain, chronic, plantar fasciitis suspected COMPARISON: None TECHNIQUE: Multiplanar, multisequence MRI was performed of the right footwithout intravenous contrast. FINDINGS: Bone: No acute fracture or dislocation. No osteochondral lesion.Posterior plantar calcaneal spur. Small Achilles tendon enthesophyte. Soft Tissues: Focal thickening of the plantar fascia with superimposedheterogeneous signal involving the medial cord in keeping with mild heelpad subcutaneous soft tissue swelling. Nonspecific susceptibility artifact is noted along the skin at the levelof the heel pad. Physiologic right ankle joint fluid is noted. The sinus Tarsi isunremarkable. Focal fluid signal along the dorsal anterior tibiotalararticulation which may represent a small ganglion measuring approximately8 x 7 mm. IMPRESSION: Focal thickening and heterogeneous signal involving the medial cord of theplantar fascia either representing plantar fasciitis and/or low-gradepartial thickness tearing with underlying heel pad edema. -------- FINAL REPORT -------- Dictated By: Priscilla Carlton Dictated Date: 08/12/2024 08:13 ET Assigned Physician: Priscilla Carlton Reviewed and Electronically Signed By: Priscilla Carlton Signed Date: 08/12/2024 08:32 ET Workstation ID: [id number] Transcribed By: Self Edit Transcribed Date: 08/12/2024 08:13 ET Carlos Gr DPM IMG MRI PROCEDURES Final Result * Vaginitis pathogens molecular study (07/29/2024 12:00 AM EST) Trichomonas vaginalis Negative Negative 07/30/2024 11:20 AM EST [facility] Gardnerella vaginalis Negative Negative 07/30/2024 11:20 AM EST [facility] Janiya Species Negative Negative 11:20 AM EST [facility] Swab Vaginal structure / Unknown 07/29/2024 07/29/2024 12:09 PM EST us Tori Lopez MD LAB MICROBIOLOGY - GENER AL ORDERABLES Final Result [facility] [address] [place] [address], from Last 3 Months Insurance [employer] Care Teams Elevator Service Technician Relationship Specialty Start Date End Date Jazmín Lutz MD [address] [place] [phone] PCP - General 11/10/23
== END 2024-10-22 09:59 | disposition home or self-care (01) ==
LOC: HO.HCS 09:32
PROVIDERS: PCP Internal Medicine; Visit Provider Internal Medicine Cardiovascular Disease
DX: I49.3 Ventricular premature depolarization (principal)
CPT/HCPCS: 99213; G2211

== ENCOUNTER → 2024-10-22 09:31 | Outpatient (BNVA) | payer OTHER, SELFPAY | PROVIDERS: PCP Internal Medicine; Visit Provider Internal Medicine Cardiovascular Disease | DX: I49.3 Ventricular premature depolarization (principal) | CPT/HCPCS: 99212 ==

== ENCOUNTER 2024-11-05 10:05 | Outpatient (AMB) | payer OTHER, SELFPAY ==
[2024-11-05 11:13] VITALS: BP 110/82; PULSE 70; RESP 16; TEMP 36.7; O2SAT 97; BMI 32.9
--- NOTE | 2024-11-05 11:13 | MHC.PC.OV ---
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 Intake Note: Pt is here today as a [facility]/ PE : Pt states had a partial hysterectomy 2013 Allergies No Known Allergies Allergy (Verified 11/05/24 11:21) Medication List - Last Reconciled 11/05/24 by Jennifer Hope MD metoprolol succinate ER (Toprol XL) 50 mg PO DAILY Tobacco use date assessed: 11/05/24 Dental Screening Dental Screen Date: 11/05/24 Did you have a dental visit in the last 12 months?: Yes Did you have a dental problem in the last 6 months where you did not have access to dental care?: No Was dental information given to patient?: Patient has 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 She is up-to-date with her cervical cancer screening, done in October of 2022 at [facility] with negative findings. She had her screening mammogram done in May 2023 also with benign findings. Currently being seen by Dr. Evans for symptomatic PVCs, now controlled on metoprolol succinate ER 50 mg taken once a day. Complains of having intermittent episodes of fatigue, no accompanying shortness of breath or lightheadedness. She also has been having bilateral pain in both wrists, worse towards the end of the day accompanied by occasional numbness and tingling in the fingers of both hands. [facility] Medical History (Updated 11/17/24 @ 17:46 by Jennifer Hope MD) Bilateral wrist pain History of uterine fibroid Surgical menopause Fatigue History of nephrolithiasis Vaginal pruritus GERD (gastroesophageal reflux disease) Surgical History (Updated 11/05/24 @ 11:39 by Jennifer Hope MD) History of appendectomy History of partial hysterectomy Family History (Updated 11/05/24 @ 11:43 by Jennifer Hope MD) Mother Stroke Diabetes mellitus type 2, controlled Hypothyroidism Father Alcoholic liver disease Diabetes mellitus type 2, controlled Hypercholesterolemia Sister Diabetes mellitus type 2, controlled Sister Systemic lupus erythematosus Maternal Grandmother Alzheimer's disease Social History Housing: House Patient Tobacco Use Status: Never used Tobacco e-Cigarette/Vaping Use: Never Used service: No Current occupational status: employed Cognitive needs: No Hearing needs: No Vision needs: No Female Reproductive History Menstrual Age of Menarche: 11 Menopause type: surgical Questionnaire PHQ-9 Over the last 2 weeks, how often have you been bothered by any of the following problems? 1. Little interest or pleasure in doing things: not at all 2. Feeling down, depressed, or hopeless: not at all 3. Trouble falling or staying asleep, or sleeping too much: not at all 4. Feeling tired or having little energy: not at all 5. Poor appetite or overeating: not at all 6. Feeling bad about yourself - or that you are a failure or have let yourself or your family down: not at all 7. Trouble concentrating on things, such as reading the newspaper or watching television: not at all 8. Moving or speaking so slowly that other people could have noticed. Or the opposite - being so fidgety or restless that you have been moving around a lot more than usual: not at all 9. Thoughts that you would be better off or of hurting yourself in some way: not at all Total score: 0 Depression Screening Interpretation: Negative Depression Screening Done: Yes 83684 - PHQ-9 Billing: Yes Source: Developed by Drs. Richard Osorio, Rhonda King, Amilcar Carreon and colleagues, with an educational hero from [employer]. Thrive Questionnaire Date Thrive assessed: 11/05/24 I am a: Patient What is your living situation today?: I have a steady place to live Within the past 12 months, did the food you bought not last and you didn't have the money to get more?: Never true Within the past 12 months, did you worry whether your food would run out before you got money to buy more?: Never true Do you have trouble paying for medicines?: No Do you have trouble getting transportation to medical appointments?: No Do you have trouble paying your heating and electricity bill?: No Do you have trouble taking care of your child, family member or friend?: No Do you have trouble with day-to-day activities such as bathing, preparing meals, shopping, managing finances, etc.?: No Are you currently unemployed and looking for a job?: No Are you interested in more education?: No THRIVE Score: 0 AUDIT C Alcohol Use Questionnaire (AUDIT-C) 1. How often do you have a drink containing alcohol?: Never Total Score: 0 Review of Systems Const Denies chills, Denies fatigue, Denies fever(s), Denies frequent falls, Denies weight gain and Denies weight loss Eyes Denies change in vision ENT Denies dizziness Card Denies chest pain, Denies leg edema, Denies lightheadedness, Denies palpitations, Denies dyspnea, Denies dyspnea on exertion, Denies orthopnea and Denies other (loss of consciousness) Resp Denies cough, Denies dyspnea and Denies dyspnea on exertion GI Denies hematochezia and Denies change in stool character Reports no additional complaints Musc Reports as per HPI, Denies abnormal gait, Denies muscle weakness and Denies radiating pain into limb Skin/Breast Denies breast pain, Denies breast mass and Denies rash Neuro Denies Abnormal speech present, Denies abnormal gait, Denies dizziness and Denies frequent falls Psych Reports no additional complaints Endo Denies fatigue and Denies palpitations Will/Lymph Reports no additional complaints Aller/Immun Reports no additional complaints Physical exam (Primary Care) Vital Signs: Last Vital Signs Temp 98.0 F 11/05/24 11:13 Pulse 70 11/05/24 11:13 Resp 16 11/05/24 11:13 BP 110/82 11/05/24 11:13 Pulse Ox 97 11/05/24 11:13 Oxygen Delivery Method Room Air 11/05/24 11:13 BMI result Body Mass Index 32.9 Tobacco/Smoking Status: Tobacco use Status Tobacco use date assessed 11/05/24 11/05/24 11:14 Patient Tobacco Use Status Never used Tobacco 11/05/24 11:13 e-Cigarette/Vaping Use Never Used 11/05/24 11:13 Depression Screening Interpretation: Negative Thrive Assessment: Date of Thrive Assessment Date Thrive assessed 07/09/24 11/05/24 11:13 Advance Care Planning discussion: Completed/Scanned Date of discussion: 11/05/24 Who was present: Patient Forms completed: Health Care Proxy Time spent: 16-45 minutes Actual minutes spent: 2 Const General: no acute distress and alert Nutritional Appearance: obese Orientation/consciousness: patient oriented x3 Limitations: no limitations HENMT Head: Yes normocephalic Ears: external ears normal, TM's normal bilaterally and EAC's normal General nose exam: Normal external nose present Face and sinus: Yes sinuses nontender and Yes face symmetric Mouth: Normal oral and palatal mucosa present, lip normal, tongue normal, oropharynx normal and moist mucous membranes Eyes General: appearance normal, both eyes and all related structures Eyelids: Yes eyelids normal Conjunctivae: conjunctivae normal Sclerae: sclerae normal Pupils: Equal, round and reactive pupils present EOM: EOMs intact bilaterally Neck Neck: Yes full ROM, Yes no lymphadenopathy and Yes supple Thyroid: Thyroid normal Chest Chest palpation & inspection: normal inspection of the chest Breast/axilla inspection: normal inspection of the breasts Breast/axilla palpation: normal palpation of the breasts Resp Effort & Inspection: normal respiratory effort, able to speak in complete sentences and no cough Auscultation: clear to auscultation bilaterally Cardio Palpation: normal PMI Rate: regular rate Rhythm: regular rhythm Heart sounds: S1 normal heart sound present and S2 normal heart sound present GI Inspection: Yes scar (Midline) Palpation (GI): Soft to palpation, nontender, no guarding and no masses Auscultation: normal bowel sounds General: Yes no CVA tenderness Back/Spine/Pelvis Back: no CVA tenderness Skin General skin exam: no rashes or lesions noted Neuro General: patient oriented x3, gait normal, tone normal, moves all extremities, Normal light touch and pain sensation, no focal motor deficits and CN's II-XI intact bilaterally Cranial nerves: Yes Equal, round and reactive pupils present Cognition (Neuro): normal cognition Speech: No Abnormal speech present Gait exam (Neuro): Normal gait present Motor exam (neuro): 5/5 motor strength present throughout Extrem Other: Negative Phalen's or Tinel's sign General: Yes full ROM, Yes no joint enlargement, Yes no clubbing, cyanosis or edema and Yes normal gait Psych Appearance: grossly normal and well kempt Mental Status: mental status grossly normal Speech and movement: Normal speech and movement present Affect: normal affect Attitude: cooperative Thought process: Normal thought process present Thought content: Normal thought content present Coding Level of Care Code Est Pt Prev Care 40-64y(61642) Diagnoses Annual visit for general adult medical examination with abnormal findings Z00. PVC (premature ventricular contraction) I49.3 Fatigue, unspecified type R53.83 Fatigue type: unspecified Bilateral wrist pain M25.531; M25.532 Additional Codes Vital Signs *Quality* - Advance Care Planning discussion: Completed/Scanned ([id number]) Vital Signs *Quality* - Time spent: 16-45 minutes ([id number]) PHQ-9 - 28365 - PHQ-9 Billing: Yes ([id number]) Assessment & Plan Assessment & Plan (1) Annual visit for general adult medical examination with abnormal findings: Code(s): Z00. - Encounter for general adult medical examination with abnormal findings Plan: Will check appropriate labs. Recommended dental visit every 6 months and regular eye exams, at least every 2 years. Take adequate calcium in diet and vitamin-D 3 at 2000 IU per cap once a day, in addition to weight-bearing exercises to help maintain good muscle tone and weight control. Instructed to do self-breast exam, and recommended to get yearly mammogram, last 1 done was in 2022 at [facility]. Up-to-date with her cervical cancer screening, done in 2022 at [facility] as well. Reminded to get her yearly flu shot, does not want to get further COVID vaccines or Tdap present time (2) PVC (premature ventricular contraction): Code(s): I49.3 - Ventricular premature depolarization Category: Medical Plan: Controlled on metoprolol succinate ER 50 mg daily, followed by cardiology (3) Fatigue: Code(s): R53.83 - Other fatigue Category: Medical Qualifiers: Fatigue type: unspecified Qualified Code(s): R53.83 - Other fatigue Plan: Ordered CBC and vitamin-D levels was basic metabolic panel and TSH with reflex free T4 (4) Bilateral wrist pain: Code(s): M25.531 - Pain in right wrist; M25.532 - Pain in left wrist Category: Medical Plan: Ordered bilateral nerve conduction study Orders: Orders Complete Blood Count Auto Diff 11/05/24 I49.3 - Ventricular premature depolarization, R53.83 - Other fatigue, Z00.01 - Encounter for general adult medical examination with abnormal findings, Z13.1 - Encounter for screening for diabetes mellitus, Z13.220 - Encounter for screening for lipoid disorders, E89.40 - Asymptomatic postprocedural ovarian failure, Z86.018 - Personal history of other benign neoplasm, Z90.711 - Acquired absence of uterus with remaining cervical stump, Z90.49 - Acquired absence of other specified parts of digestive tract Liver Panel 11/05/24 I49.3 - Ventricular premature depolarization, R53.83 - Other fatigue, Z00.01 - Encounter for general adult medical examination with abnormal findings, Z13.1 - Encounter for screening for diabetes mellitus, Z13.220 - Encounter for screening for lipoid disorders, E89.40 - Asymptomatic postprocedural ovarian failure, Z86.018 - Personal history of other benign neoplasm, Z90.711 - Acquired absence of uterus with remaining cervical stump, Z90.49 - Acquired absence of other specified parts of digestive tract Basic Metabolic Panel Fasting 11/05/24 I49.3 - Ventricular premature depolarization, R53.83 - Other fatigue, Z00.01 - Encounter for general adult medical examination with abnormal findings, Z13.1 - Encounter for screening for diabetes mellitus, Z13.220 - Encounter for screening for lipoid disorders, E89.40 - Asymptomatic postprocedural ovarian failure, Z86.018 - Personal history of other benign neoplasm, Z90.711 - Acquired absence of uterus with remaining cervical stump, Z90.49 - Acquired absence of other specified parts of digestive tract Alanine Aminotransferase 11/05/24 I49.3 - Ventricular premature depolarization, R53.83 - Other fatigue, Z00.01 - Encounter for general adult medical examination with abnormal findings, Z13.1 - Encounter for screening for diabetes mellitus, Z13.220 - Encounter for screening for lipoid disorders, E89.40 - Asymptomatic postprocedural ovarian failure, Z86.018 - Personal history of other benign neoplasm, Z90.711 - Acquired absence of uterus with remaining cervical stump, Z90.49 - Acquired absence of other specified parts of digestive tract Vitamin D 25-OH Total 11/05/24 I49.3 - Ventricular premature depolarization, R53.83 - Other fatigue, Z00.01 - Encounter for general adult medical examination with abnormal findings, Z13.1 - Encounter for screening for diabetes mellitus, Z13.220 - Encounter for screening for lipoid disorders, E89.40 - Asymptomatic postprocedural ovarian failure, Z86.018 - Personal history of other benign neoplasm, Z90.711 - Acquired absence of uterus with remaining cervical stump, Z90.49 - Acquired absence of other specified parts of digestive tract TSH reflex Free T4 11/05/24 I49.3 - Ventricular premature depolarization, R53.83 - Other fatigue, Z00.01 - Encounter for general adult medical examination with abnormal findings, Z13.1 - Encounter for screening for diabetes mellitus, Z13.220 - Encounter for screening for lipoid disorders, E89.40 - Asymptomatic postprocedural ovarian failure, Z86.018 - Personal history of other benign neoplasm, Z90.711 - Acquired absence of uterus with remaining cervical stump, Z90.49 - Acquired absence of other specified parts of digestive tract NE nerve conduction velocity 11/05/24 M25.531 - Pain in right wrist, M25.532 - Pain in left wrist Aspartate Amino Transferase 11/05/24 I49.3 - Ventricular premature depolarization, R53.83 - Other fatigue, Z00.01 - Encounter for general adult medical examination with abnormal findings, Z13.1 - Encounter for screening for diabetes mellitus, Z13.220 - Encounter for screening for lipoid disorders, E89.40 - Asymptomatic postprocedural ovarian failure, Z86.018 - Personal history of other benign neoplasm, Z90.711 - Acquired absence of uterus with remaining cervical stump, Z90.49 - Acquired absence of other specified parts of digestive tract
--- OUTSIDE RECORDS SUMMARY | 2024-11-05 11:46 | XMS_ITS | Encounter Summary ---
Author Organization [facility] Address [address] [place] [address] Care Team Providers Care Salesperson Driver Name Role Phone Jazmín Lutz MD Primary Care Provider Encounter Details Date Type Department Care Team (Late st Contact Info) Description 10/08/2024 Telephone Orthopedic Surgery [facility] [address] [place] [phone] Liana Escobar MA Social History Tobacco [...] encounter documented in this encounter Care Teams Salesperson Driver Relationship Specialty Start Date End Date Jazmín Lutz MD [address] [place] [phone] PCP - General 11/10/23 documented as of this encounter
--- OUTSIDE RECORDS SUMMARY | 2024-11-05 11:46 | XMS_ITS | Encounter Summary ---
Author Organization [facility] Address [address] [place] [address] Care Team Providers Care Dobby Loom Weaver Name Role Phone Jazmín Lutz MD Primary Care Provider Encounter Details Date Type Department Care Team (Late st Contact Info) Description 07/29/2024 Lab Requisition [facility] - Main Lab [address] [place] [phone] Tori Lopez MD [address] [phone] Acute vaginitis Social History Tobacco Use Types [...] Trichomonas vaginalis Negative Negative 07/30/2024 11:20 AM [facility] Gardnerella vaginalis Negative Negative 07/30/2024 11:20 AM [facility] Janiya Species Negative Negative 11:20 AM [facility] Swab Vaginal structure / Unknown 07/29/2024 07/29/2024 12:09 PM EST us Tori Lopez MD LAB MICROBIOLOGY - GENER AL ORDERABLES Final Result [facility] [address] [place] [address], documented in this encounter Visit Diagnoses Diagnosis Acute vaginitis Unspecified vaginitis and vulvovaginitis documented in this encounter Care Teams Dobby Loom Weaver Relationship Specialty Start Date End Date Jazmín Lutz MD [address] [place] [phone] PCP - General 11/10/23 documented as of this encounter
--- OUTSIDE RECORDS SUMMARY | 2024-11-05 11:46 | XMS_ITS | Clinical Summary ---
Author Organization [address] [place] [address] Address [address] [place] [address] Phone Care Team Providers Care Daub Color Mixer Name Role Phone Jazmín Lutz MD Primary Care Provider Allergies No known active allergies Medications naproxen (NAPROSYN) 500 mg tabletIndication s:Plantar fascial fibromatosis,Spr ain of other ligament of left ankle, initial encounter Take 1 tablet (500 mg total) by mouth 2 (two) times a day. 60 each 10/08/2024 Active Encounters Date Type Department Care Team Description 10/08/2024 Telephone Orthopedic Surgery - [facility] [address] [facility] [address] [place] [address] Liana Escobar, JUANCHO 08/08/2024 6:23 PM EST - 08/08/2024 11:59 PM EST Hospital Encounter [facility] MRI [address] [place] [address] Plantar fascial fibromatosis Discharge Disposition: Home or Self Care from Last 3 Months Immunizations Name Administration [...] Influencers of Health Screening 02/16/2024 COVID-19 Vaccine ( - 2023-2 5 season) 2024 07/08/2022, 12/25/2021, 12/04/2020 Influenza Vaccine (Season Ended) 2025 05/13/2023, 05/27/2022, 05/07/2021 DTaP,Tdap,and Td Vaccines (2 - [...] age to complete this topic Meningococcal B Vaccine Aged Out No l onger eligible based on patient's age to complete [...] 08/08/2024 7:39 PM EST Plantar fascial fibromatosis from Last 3 Months Results * MR [...] Signed Date: 08/12/2024 08:32 ET Workstation ID: [id number] Transcribed By: Self Edit Transcribed Date: 08/12/2024 [...] Signed Date: 08/12/2024 08:32 ET Workstation ID: [id number] Transcribed By: Self Edit Transcribed Date: 08/12/2024 08:13 ET Carlos Gr DPM IMG MRI PROCEDURES Final Result from Last 3 Months Insurance [employer] Care Teams Daub Color Mixer Relationship Specialty Start Date End Date Jazmín Lutz MD [address] [place] [phone] PCP - General 11/10/23
== END 2024-11-05 11:57 | disposition home or self-care (01) ==
LOC: HO.HMCC 10:05
PROVIDERS: PCP Internal Medicine; Visit Provider Internal Medicine
DX: Z00.01 Encounter for general adult medical examination with abnormal findings (principal); I49.3 Ventricular premature depolarization; R53.83 Other fatigue; M25.531 Pain in right wrist; M25.532 Pain in left wrist; Z00.00 Encounter for general adult medical examination without abnormal findings

== ENCOUNTER → 2024-11-05 10:05 | Outpatient (BNVA) | payer OTHER, SELFPAY | PROVIDERS: PCP Internal Medicine; Visit Provider Internal Medicine | DX: Z00.01 Encounter for general adult medical examination with abnormal findings (principal); I49.3 Ventricular premature depolarization; Z79.899 Other long term (current) drug therapy; R53.83 Other fatigue; M25.531 Pain in right wrist; M25.532 Pain in left wrist; Z90.711 Acquired absence of uterus with remaining cervical stump; Z90.49 Acquired absence of other specified parts of digestive tract | CPT/HCPCS: 96127; 99396; 99497 ==

== ENCOUNTER 2025-04-01 09:52 | Outpatient (REF) | payer OTHER, SELFPAY ==
--- NOTE | 2025-04-01 09:55 | EMG_ITS ---
Chief complaint: Bilateral wrist pain with intermittent numbness and tingling in fingers. Referred by: Jennifer Hope MD Procedure done: Nerve conduction velocity with EMG Bilateral median and ulnar motor and sensory studies were performed bilateral radial sensory studies were performed bilateral median and lateral antecubital brachial sensory studies were performed an EMG needle examination was performed. Impression: 1. [id number] bilateral median neuropathy across carpal tunnel 2. Mild left ulnar neuropathy across cubital tunnel MTDD
== END 2025-04-01 09:53 | disposition home or self-care (01) ==
LOC: HO.NEURO 09:52
PROVIDERS: PCP Internal Medicine; Visit Provider Internal Medicine
DX: M25.531 Pain in right wrist (principal); M25.532 Pain in left wrist
CPT/HCPCS: 95886; 95913

== ENCOUNTER → 2025-04-01 09:55 | Outpatient (BNV) | payer OTHER, SELFPAY | PROVIDERS: PCP Internal Medicine; Visit Provider Psychiatry & Neurology Neurology | DX: G56.03 Carpal tunnel syndrome, bilateral upper limbs (principal) | CPT/HCPCS: 95886; 95912 ==